=== PATIENT | female | born 1995 | race African-American/Black ===

== ENCOUNTER 2025-01-16 08:49 | Outpatient (CLI) | payer OTHER | END 2025-01-16 08:50 | disposition home or self-care (01) | LOC: ULT 08:49 | PROVIDERS: ATTEND Nurse Practitioner Family | DX: E04.2 Nontoxic multinodular goiter (principal); E66.9 Obesity, unspecified; Z97.8 Presence of other specified devices | CPT/HCPCS: 76536 ==